=== PATIENT | male | born 1950 | race Caucasian/White ===

== ENCOUNTER → 2024-12-03 11:04 | Outpatient (REF) | payer BC, SELFPAY | LOC: HWRAD 11:04 | PROVIDERS: ATTENDING PHYSICIAN Internal Medicine Cardiovascular Disease; FAMILY PHYSICIAN Family Medicine | DX: R94.31 Abnormal electrocardiogram [ECG] [EKG] (principal); I45.10 Unspecified right bundle-branch block; R60.0 Localized edema; R06.02 Shortness of breath | CPT/HCPCS: 71046 ==

== ENCOUNTER → 2024-12-11 11:02 | Outpatient (REF) | payer BC, SELFPAY | LOC: HWRCS 11:02 | PROVIDERS: ATTENDING PHYSICIAN Internal Medicine Cardiovascular Disease; FAMILY PHYSICIAN Family Medicine | DX: R94.31 Abnormal electrocardiogram [ECG] [EKG] (principal); I45.10 Unspecified right bundle-branch block; R06.02 Shortness of breath; R60.0 Localized edema | CPT/HCPCS: 93306 ==

== ENCOUNTER → 2024-12-23 07:43 | Outpatient (REF) | payer BC, SELFPAY | LOC: HWRCS 07:43 | PROVIDERS: ATTENDING PHYSICIAN Internal Medicine Cardiovascular Disease; FAMILY PHYSICIAN Family Medicine | DX: R94.31 Abnormal electrocardiogram [ECG] [EKG] (principal); I45.10 Unspecified right bundle-branch block; R60.0 Localized edema; R06.02 Shortness of breath | CPT/HCPCS: 78452; 93017; A9500; J2785 ==

== ENCOUNTER 2025-01-09 16:19 | Outpatient (RCR) | payer BC, SELFPAY | END 2025-01-09 23:59 | disposition home or self-care (01) | LOC: RPT 16:19 | PROVIDERS: ATTENDING PHYSICIAN Student in an Organized Health Care Education/Training Program; FAMILY PHYSICIAN Family Medicine | DX: M17.11 Unilateral primary osteoarthritis, right knee (principal); S86.811D Strain of other muscle(s) and tendon(s) at lower leg level, right leg, subsequent encounter; Z73.6 Limitation of activities due to disability; R26.89 Other abnormalities of gait and mobility; M62.81 Muscle weakness (generalized) | CPT/HCPCS: 97010; 97110; 97162 ==

== ENCOUNTER 2025-01-12 12:32 | Outpatient (RCR) | payer BC, SELFPAY | END 2025-01-26 23:59 | disposition home or self-care (01) | LOC: RPT 12:32 | PROVIDERS: ATTENDING PHYSICIAN Student in an Organized Health Care Education/Training Program; FAMILY PHYSICIAN Family Medicine | DX: M17.11 Unilateral primary osteoarthritis, right knee (principal); S86.811D Strain of other muscle(s) and tendon(s) at lower leg level, right leg, subsequent encounter; Z73.6 Limitation of activities due to disability; R26.89 Other abnormalities of gait and mobility; M62.81 Muscle weakness (generalized) | CPT/HCPCS: 97010; 97110 ==